=== PATIENT | female | born 1965 ===

== ENCOUNTER → 2018-06-04 11:42 | Outpatient (CLI) | payer OTHER, SELFPAY ==
--- NOTE | 2018-06-04 | DI.MRI.S_ITS ---
PROCEDURE: MR ANKLE RT WO CON INDICATIONS: RIGHT ANKLE PAIN/INJURY TECHNIQUE: Noncontrast sagittal T1 spin echo and T2 fast spin echo with fat saturation, axial proton density fast spin echo and T2 fast spin echo with fat saturation, coronal T1 spin echo and T2 fast spin echo with fat saturation through the ankle/hindfoot. COMPARISON: None. FINDINGS: Image quality: Excellent. Bones and joints: No bone marrow contusions or fractures. No hindfoot coalitions. No osteochondral injuries of the talar dome. No pathologic joint effusions. Medial structures: The posterior tibialis, flexor digitorum longus, and flexor hallucis longus tendons are intact. There is minimal fluid adjacent to the posterior tibialis tendon in keeping with low-grade tenosynovitis. The posterior tibial neurovascular bundle appears normal within the tarsal tunnel, without extrinsic mass effect. The deep layer (anterior and posterior tibiotalar ligaments) and superficial layer (tibionavicular, tibiospring, and tibiocalcaneal ligaments) of the deltoid ligament appear normal. The spring ligament components (superomedial calcaneonavicular, medioplantar oblique calcaneonavicular, and inferoplantar longitudinal ligaments) are intact. Lateral structures: The anterior talofibular, calcaneofibular, and posterior talofibular ligaments appear intact. However, there is low signal thickening of the anterior talofibular ligament suggestive of chronic sprain. More superiorly, the anterior and posterior tibiofibular ligaments appear intact, as is the intermalleolar ligament. The tibiofibular syndesmosis is normal in width at 2 mm or less. The peroneus brevis tendon appears grossly intact although there is adjacent mild fluid and intrasubstance signal change in keeping with tendinopathy and mild tenosynovitis. The peroneus longus tendon demonstrates marked thickening and intrasubstance signal change seen at the level of the base of the fifth metatarsal; this suggests partial tear and tendinopathy although on coronal pulse sequences appears intact. Adjacent bony peroneal tubercle and retrotrochlear prominence are normal in size. The sinus tarsi demonstrates normal fatty signal, without edema, fibrosis, or cyst formation. Visualized sinus tarsi components (cervical ligament, interosseous talocalcaneal ligament, roots of the inferior extensor retinaculum) appear normal. The calcaneonavicular and calcaneocuboid components of the bifurcate ligament appear intact. The dorsal calcaneocuboid ligament appears intact. Anterior structures: The tibialis anterior, extensor hallucis longus, and extensor digitorum longus tendons appear intact. The dorsal talonavicular ligament appears intact. Posterior and plantar structures: Achilles tendon is intact. Medial and lateral bands of the plantar fascia are of normal thickness. IMPRESSION: Marked thickening and intrasubstance signal change of the peroneus longus tendon at about the level of the base of the fifth metatarsal/cuboid, in keeping with partial rupture and severe tendinopathy. Peroneus brevis tendinopathy and low-grade tenosynovitis. Mild posterior tibialis tenosynovitis. Low-grade, chronic appearing anterior talofibular ligament sprain. Dictated by: Bryon Knowles M.D. on 06/04/2018 at 14:22 Approved by: Bryon Knowles M.D. on 06/04/2018 at 14:57
== END ==
PROVIDERS: PCP Family Medicine; Visit Provider Podiatrist
DX: S93.491A Sprain of other ligament of right ankle, initial encounter (principal); M65.871 Other synovitis and tenosynovitis, right ankle and foot; M25.371 Other instability, right ankle; M25.571 Pain in right ankle and joints of right foot
CPT/HCPCS: 73721